=== PATIENT | female | born 1970 | race African-American/Black ===

== ENCOUNTER 2017-05-22 19:17 | Emergency (ER) | payer SELFPAY ==
[~2017-05-22] VITALS: Ht 175.3 cm; Wt 150.0 kg
[~2017-05-22 19:17] MED LIST: Z.0.NO CURRENT MEDS
[2017-05-22 19:19] VITALS: BP 135/82; PULSE 88; RESP 16; TEMP 98.5; O2SAT 96
[2017-05-22] MEDS ORDERED: SODIUM CHLORIDE 0.9% FLUSH 10 ML FLUSH IVF PRN (21:15)
[2017-05-22] MEDS ORDERED: diphenhydrAMINE HCL 50 MG/ML VIAL IVP ONE (21:15)
[2017-05-22] MEDS ORDERED: PROCHLORPERAZINE INJ 10 MG/2 ML VIAL IVP ONE (21:15)
--- NOTE | 2017-05-22 22:33 | PD ---
HPI . Headache Chief Complaint: Headache Time Seen by Provider: 21:14 Travel History International Travel<30 days: No Contact w/Intl Traveler<30days: No Traveled to known affect area: No History of Present Illness HPI This patient presents with chief complaint of headache. Onset was yesterday. She describes a pressure-like sensation in both the front and back of her head. Her headache was relieved by Advil yesterday but recurred today. She did not take any further Advil today. She rates the pain 8/10. PFSH Past Medical History Medical History: Denies Significant Hx Cardiovascular Problems: Yes (HTN, NOT MEDICATED) Medical other: Yes (PERINTONITIS) Tetanus Vaccination: Unknown Influenza Vaccination: No ?: Not LMP: 1 WEEK AGO Past Surgical History Abdominal Surgery: Yes Section: Yes Other Surgery: Yes (EVACUATION OF HEMATOMA LEFT CALF) Social History Alcohol Use: No Tobacco Use: Yes Substance Use: No Allergies-Medications (Allergen,Severity, Reaction): Coded Allergies: No Known Allergies (Verified , 12/26/16) Reported Meds & Prescriptions Reported Meds & Active Scripts Active No Active Prescriptions or Reported Medications Review of Systems Except as stated in HPI: all other systems reviewed are Neg General / Constitutional: No: Fever, Chills Eyes: No: Blurred Vision HENT: Positive: Headaches Gastrointestinal: No: Nausea, Vomiting Physical Exam Narrative GENERAL: Awake and alert and in no acute distress. SKIN: Warm and dry with no rash or lesions. HEAD: Normocephalic/atraumatic. EYES: Pupils are equal. Extraocular movements are intact. ENT: Mucous membranes are pink and moist. NECK: Neck is supple. RESPIRATORY: Nonlabored respirations. MUSCULOSKELETAL: Atraumatic. NEUROLOGICAL: A and O times 3. Cranial nerves are intact. Transfer Car Operator Drier strengths are full and equal. Afrjpw-oelf-nhzezw exam is intact. PSYCHIATRIC: Appropriate mood and affect. Data Data Last Documented VS Vital Signs Date Time Temp Pulse Resp B/P (MAP) Pulse Ox O2 Delivery O2 Flow Rate FiO2 05/22/17 19:19 98.5 88 16 135/82 (99) 96 Room Air Orders Orders Iv Access Insert/Monitor (05/22/17 21:14) Sodium Chloride 0.9% Flush (Ns Flush) (05/22/17 21:15) Prochlorperazine Inj (Compazine Inj) (05/22/17 21:15) Diphenhydramine Inj (Benadryl Inj) (05/22/17 21:15) MDM Medical Decision Making Medical Screen Exam Complete: Yes Emergency Medical Condition: Yes Differential Diagnosis Differential diagnosis of headache includes but is not limited to migraine, muscle contraction headache, brain tumor, brain bleed Narrative Course Patient presents complaining with a global headache. Her headache was treated with Compazine and Benadryl. Her headache has now completely resolved. Diagnosis Primary Impression: Headache Qualified Codes: G44.209 - Tension-type headache, unspecified, not intractable Patient Instructions: Acute Headache (DC), General Instructions Scripts No Active Prescriptions or Reported Meds Disposition: 01 DISCHARGE HOME Condition: Stable Kirstie Hagen MD May 22, 2017 22:33
== END 2017-05-22 22:46 | disposition home or self-care (01) ==
LOC: NEPD 19:17
DX: G44.209 Tension-type headache, unspecified, not intractable (principal); Z72.0 Tobacco use
CPT/HCPCS: 96374; 96375; 99284; J0780; J1200

== ENCOUNTER 2017-11-23 15:02 | Observation (INO) | payer SELFPAY ==
[~2017-11-23] VITALS: Ht 175.3 cm; Wt 141.0 kg
[2017-11-23 15:05] VITALS: BP 138/70; PULSE 99; RESP 16; TEMP 98; O2SAT 96
--- NOTE | 2017-11-23 16:42 | PD ---
HPI Chief Complaint: Diabetic Time Seen by Provider: 16:05 Travel History International Travel<30 days: No Contact w/Intl Traveler<30days: No Traveled to known affect area: No History of Present Illness HPI 47yo F presents to the ED c/o weakness and fatigue for several weeks. Pt states it was at its worse this morning while at work and asked to go home due to her unable to do her usual duties. When she got home, her roommate took her BS and it was 435. Upon arrival to the ED, her BS was measured at 445. She also states that she has been getting "cotton mouth" and leg cramps at night that are alleviated with movement. She was diagnosed with diabetes mellitus one week by Dr. Rice, after being borderline for sometime. She has since been started on Metformin 500mg twice daily, but is unable to monitor her BS because she does not have a BS monitor. She currently denies any chest pain, SOB, numbness, tingling, changes in urination or bowel movements. 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 Alert and oriented x3. SKIN: Warm and dry. HEAD: Atraumatic. Normocephalic. EYES: Pupils equal and round. No scleral icterus. No injection or drainage. No conjunctival pallor. ENT: No nasal bleeding or discharge. Mucous membranes pink and moist. NECK: Trachea midline. No JVD. CARDIOVASCULAR: Regular rate and rhythm. RESPIRATORY: No accessory muscle use. Clear to auscultation. Breath sounds equal bilaterally. GASTROINTESTINAL: Abdomen soft, non-tender, nondistended. Hepatic and splenic margins not palpable. Midline incisional scar from previous surgery. MUSCULOSKELETAL: Extremities without clubbing, cyanosis, or edema. No obvious deformities. NEUROLOGICAL: Awake and alert. No obvious cranial nerve deficits. Motor grossly within normal limits. Five out of 5 muscle strength in the arms and legs. Normal speech. PSYCHIATRIC: Appropriate mood and affect; insight and judgment normal. Data Data Last Documented VS Vital Signs Date Time Temp Pulse Resp B/P (MAP) Pulse Ox O2 Delivery O2 Flow Rate FiO2 11/23/17 17:46 82 16 119/71 (87) 100 11/23/17 15:05 98.0 Orders Orders Basic Metabolic Panel (Bmp) (11/23/17 15:08) Complete Blood Count With Diff (11/23/17 15:08) Urinalysis - C+S If Indicated (11/23/17 15:08) Sodium Chlor 0.9% 1000 Ml Inj (Ns 1000 M (11/23/17 16:45) Sodium Chlor 0.9% 1000 Ml Inj (Ns 1000 M (11/23/17 16:45) Insulin Human Regular Inj (Novolin R Inj (11/23/17 17:30) Sodium Chlorid 0.9% 500 Ml Inj (Ns 500 M (11/23/17 18:00) Diet 1999 Ada Cons Carb (11/23/17 Dinner) Labs Laboratory Tests Test 11/23/17 15:50 11/23/17 17:45 Urine Color LIGHT-YELLOW Urine Turbidity CLEAR Urine pH 5.0 Urine Specific [place] 1.038 Urine Protein NEG mg/dL Urine Glucose (UA) 1000 mg/dL Urine Ketones 40 mg/dL Urine Occult Blood NEG Urine Nitrite NEG Urine Bilirubin NEG Urine Urobilinogen LESS THAN 2.0 MG/DL Urine Leukocyte Esterase NEG Urine RBC 1 /hpf Urine WBC 1 /hpf Urine Squamous Epithelial Cells 1 /hpf Microscopic Urinalysis Comment CULT NOT INDICATED Blood Urea Nitrogen 14 MG/DL Creatinine 1.01 MG/DL Random Glucose 499 MG/DL Calcium Level 9.9 MG/DL Sodium Level 134 MEQ/L Potassium Level 4.5 MEQ/L Chloride Level 97 MEQ/L Carbon Dioxide Level 26.3 MEQ/L Anion Gap 11 MEQ/L Estimat Glomerular Filtration Rate 70 ML/MIN White Blood Count 6.8 TH/MM3 Red Blood Count 4.61 MIL/MM3 Hemoglobin 13.2 GM/DL Hematocrit 40.0 % Mean Corpuscular Volume 86.8 FL Mean Corpuscular Hemoglobin 28.6 PG Mean Corpuscular Hemoglobin Concent 33.0 % Red Cell Distribution Width 13.1 % Platelet Count 357 TH/MM3 Mean Platelet Volume 9.5 FL Neutrophils (%) (Auto) 63.0 % Lymphocytes (%) (Auto) 29.1 % Monocytes (%) (Auto) 5.5 % Eosinophils (%) (Auto) 1.1 % Basophils (%) (Auto) 1.3 % Neutrophils # (Auto) 4.3 TH/MM3 Lymphocytes # (Auto) 2.0 TH/MM3 Monocytes # (Auto) 0.4 TH/MM3 Eosinophils # (Auto) 0.1 TH/MM3 Basophils # (Auto) 0.1 TH/MM3 CBC Comment DIFF FINAL Differential Comment MDM Medical Decision Making Medical Screen Exam Complete: Yes Emergency Medical Condition: Yes Differential Diagnosis Control hyperglycemia versus DKA versus HONK Narrative Course 37-year-old female with a recent diagnosis of "borderline diabetes", presents today with complaints of weakness, dizziness, increased thirst, increased urination. Patient states that she does not have a glucometer and checked her blood sugar from her roommates blood glucose machine. She reports taking her metformin 500 mg twice daily as prescribed. The patient has been given 8 units of regular insulin, 2 L of IV fluid. Patient's blood glucose is still in the 200s. Given the fact that she has no formal physician and is seen at the free clinic, we will bring the patient in under observation for glucose control. Call out to the [facility] hospitalist team is pending. Diagnosis Primary Impression: Uncontrolled diabetes mellitus with hyperglycemia Admitting Information Admitting Physician Requests: Observation Emanuel Villarreal MD November 23, 2017 16:42
[2017-11-23 16:43] LABS: BILIRUBIN, URINE NEG (NEG); BLOOD, URINE NEG (NEG); GLUCOSE,URINE 1000 mg/dL (NEG); KETONE, URINE 40 mg/dL (NEG); NITRITE,URINE NEG (NEG); SQUAMOUS EPITHELIAL CELL URINE 1 /hpf (0-5); URINE COLOR LIGHT-YELLOW (YELLW/STRAW); URINE LEUKOCYTE ESTERASE NEG (NEG)
[2017-11-23] MEDS ORDERED: SODIUM CHLOR 0.9% 1000 ML INJ 1,000 ML IV SCH (16:45)
[2017-11-23] MEDS ORDERED: SODIUM CHLOR 0.9% 1000 ML INJ 1,000 ML IV ONE (16:45)
[2017-11-23] MEDS ORDERED: GABA300C5 PO (16:50)
[2017-11-23] MEDS ORDERED: DICL1CAP4 PO (16:50)
[2017-11-23] MEDS ORDERED: METF500T PO (16:50)
[2017-11-23 17:26] LABS: BICARBONATE 26.3 MEQ/L (21.0-32.0); CALCIUM 9.9 MG/DL (8.5-10.1); CREATININE 1.01 MG/DL (0.50-1.00)
[2017-11-23] MEDS ORDERED: INSULIN HUMAN REGULAR 1,000 UNITS/10 ML VIAL IV PUSH ONE (17:30)
[2017-11-23 17:46] VITALS: BP 119/71; PULSE 82; RESP 16; O2SAT 100
[2017-11-23] MEDS ORDERED: SODIUM CHLORID 0.9% 500 ML INJ 500 ML IV ONE (18:00)
[2017-11-23 18:07] LABS: AUTOMATED NEUTROPHIL # 4.3 TH/MM3 (1.8-7.7); BASOPHIL # 0.1 TH/MM3 (0-0.2); BASOPHIL % 1.3 % (0.0-2.0); EOSINOPHIL # 0.1 TH/MM3 (0-0.4); EOSINOPHIL % 1.1 % (0.0-4.0); HEMOGLOBIN 13.2 GM/DL (11.6-15.3); LYMPH % 29.1 % (9.0-44.0); MEAN CELL VOLUME 86.8 FL (80.0-100.0); MEAN CORPUSCULAR HEMOGLOBIN 28.6 PG (27.0-34.0); MEAN PLATELET VOLUME 9.5 FL (7.0-11.0); MONO % 5.5 % (0.0-8.0); MONOCYTE # 0.4 TH/MM3 (0-0.9); PLATELET COUNT 357 TH/MM3 (150-450); RED BLOOD COUNT 4.61 MIL/MM3 (4.00-5.30); RED CELL DISTRIBUTION WIDTH 13.1 % (11.6-17.2); WHITE BLOOD COUNT 6.8 TH/MM3 (4.0-11.0)
[2017-11-23 20:14] VITALS: BP 137/87; PULSE 98; RESP 16; O2SAT 98
[2017-11-23] MEDS ORDERED: ONDANSETRON HCL 4 MG/2 ML VIAL IVP PRN (20:30)
[2017-11-23] MEDS ORDERED: SODIUM CHLORIDE 0.9% FLUSH 10 ML FLUSH IV FLUSH PRN (20:30)
[2017-11-23] MEDS ORDERED: GLUCAGON 1 MG/ML VIAL OTHER PRN (20:30)
[2017-11-23] MEDS ORDERED: NALOXONE HCL 0.4 MG/ML AMP IV PUSH PRN (20:30)
[2017-11-23] MEDS ORDERED: DEXTROSE 50% IN WATER 50 ML VIAL(D50) IV PUSH PRN (20:30)
[2017-11-23] MEDS ORDERED: ACETAMINOPHEN 325 MG TAB PO PRN (20:30)
--- NOTE | 2017-11-23 20:52 | HHI.HP ---
[facility]PI [facility] Primary [facility]ician No Primary Care Physician Admission Diagnosis uncontrolled diabetes mellitus, Diagnoses: Travel History International Travel<30 Days: No Contact w/Intl Traveler <30 Da: No Traveled to Known Affected Are: No History of Present Illness 47-year-old female with a past medical history significant for newly diagnosed diabetes mellitus recently started on metformin 2 weeks ago and osteoarthritis presents to the ED for the evaluation of worsening fatigue x 2 weeks. The patient reports that she feels sluggish and lightheaded and reports polyuria and polydipsia. She states she has been having lower extremity cramping. She denies any chest pain or shortness of breath. No abdominal pain. No nausea/ vomiting/diarrhea. No lateralizing signs/symptoms. On arrival to the emergency department her blood sugar was found to be 499. Review of Systems Except as stated in HPI: all other systems reviewed are Neg Past Family Social History Past Medical History Newly diagnosed diabetes mellitus Osteoarthritis Past Surgical History Laparotomy for suspected peritonitis Reported Medications Reported Meds & Active Scripts Active Reported Zorvolex (Diclofenac) 35 Mg Cap 35 Mg PO BID Gabapentin 300 Mg Cap 300 Mg PO BID Metformin (Metformin HCl) 500 Mg Tab 500 Mg PO BIDPC Allergies: Coded Allergies: No Known Allergies (Verified Allergy, Unknown, 11/23/17) Family History Patient was adopted Social History Smokes approximately 3 cigarettes per day. Negative for alcohol and illicit drugs. Remote history of crack cocaine use. Physical Exam Vital Signs Vital Signs Date Time Temp Pulse Resp B/P (MAP) Pulse Ox O2 Delivery O2 Flow Rate FiO2 11/23/17 20:40 11/23/17 20:14 98 16 137/87 (104) 98 Room Air 11/23/17 17:46 82 16 119/71 (87) 100 11/23/17 15:05 98.0 99 16 138/70 (92) 96 Physical Exam GENERAL: Obese, -[place] female sitting up in bed SKIN: No rashes, ecchymoses or lesions. Cool and dry. HEAD: Atraumatic. Normocephalic. No temporal or scalp tenderness. EYES: Pupils equal round and reactive. Extraocular motions intact. No scleral icterus. No injection or drainage. ENT: Nose without bleeding, purulent drainage or septal hematoma. Throat without erythema, tonsillar hypertrophy or exudate. Uvula midline. Airway patent. NECK: Trachea midline. No JVD or lymphadenopathy. Supple, nontender, no meningeal signs. CARDIOVASCULAR: Regular rate and rhythm without murmurs, gallops, or rubs. RESPIRATORY: Clear to auscultation. Breath sounds equal bilaterally. No wheezes , rales, or rhonchi. GASTROINTESTINAL: Abdomen soft, non-tender, nondistended. No hepato-splenomegaly , or palpable masses. No guarding. MUSCULOSKELETAL: Extremities without clubbing, cyanosis, or edema. No joint tenderness, effusion, or edema noted. No calf tenderness. NEUROLOGICAL: Awake and alert. Cranial nerves II through XII intact. Motor and sensory grossly within normal limits. Normal speech. Laboratory Laboratory Tests Test 11/23/17 15:50 11/23/17 17:45 Urine Color LIGHT-YELLOW Urine Turbidity CLEAR Urine pH 5.0 Urine Specific [place] 1.038 Urine Protein NEG Urine Glucose (UA) 1000 Urine Ketones 40 Urine Occult Blood NEG Urine Nitrite NEG Urine Bilirubin NEG Urine Urobilinogen LESS THAN 2.0 Urine Leukocyte Esterase NEG Urine RBC 1 Urine WBC 1 Urine Squamous Epithelial Cells 1 Microscopic Urinalysis Comment CULT NOT INDICATED Blood Urea Nitrogen 14 Creatinine 1.01 Random Glucose 499 Calcium Level 9.9 Sodium Level 134 Potassium Level 4.5 Chloride Level 97 Carbon Dioxide Level 26.3 Anion Gap 11 Estimat Glomerular Filtration Rate 70 White Blood Count 6.8 Red Blood Count 4.61 Hemoglobin 13.2 Hematocrit 40.0 Mean Corpuscular Volume 86.8 Mean Corpuscular Hemoglobin 28.6 Mean Corpuscular Hemoglobin Concent 33.0 Red Cell Distribution Width 13.1 Platelet Count 357 Mean Platelet Volume 9.5 Neutrophils (%) (Auto) 63.0 Lymphocytes (%) (Auto) 29.1 Monocytes (%) (Auto) 5.5 Eosinophils (%) (Auto) 1.1 Basophils (%) (Auto) 1.3 Neutrophils # (Auto) 4.3 Lymphocytes # (Auto) 2.0 Monocytes # (Auto) 0.4 Eosinophils # (Auto) 0.1 Basophils # (Auto) 0.1 CBC Comment DIFF FINAL Differential Comment Result Diagram: 11/23/17 1745 11/23/17 1550 Caprini VTE Risk Assessment Caprini VTE Risk Assessment: No/Low Risk (score <= 1) Caprini Risk Assessment Model Point Value = 1 Point Value = 2 Point Value = 3 Point Value = 5 Age 41-60 Minor surgery BMI > 25 kg/m2 Swollen legs Varicose veins or History of unexplained or recurrent spontaneous Oral contraceptives or hormone replacement Sepsis (< 1 month) Serious lung disease, including pneumonia (< 1 month) Abnormal pulmonary function Acute myocardial infarction Congestive heart failure (< 1 month) History of inflammatory bowel disease Medical patient at bed rest Age 61-74 Arthroscopic surgery Major open surgery (> 45 min) Laparoscopic surgery (> 45 min) Malignancy Confined to bed (> 72 hours) Immobilizing plaster cast Central venous access Age >= 75 History of VTE Family history of VTE Factor V Leiden Prothrombin [id number] Lupus anticoagulant Anticardiolipin antibodies Elevated serum homocysteine Heparin-induced thrombocytopenia Other congenital or acquired thrombophilia Stroke (< 1 month) Elective arthroplasty Hip, pelvis, or leg fracture Acute spinal cord injury (< 1 month) Prophylaxis Regimen Total Risk Factor Score Risk Level Prophylaxis Regimen 0-1 Low Early ambulation 2 Moderate Order ONE of the following: *Sequential Compression Device (SCD) *Heparin 5000 units SQ BID 3-4 Higher Order ONE of the following medications: *Heparin 5000 units SQ TID *Enoxaparin/Lovenox 40 mg SQ daily (WT < 150 kg, CrCl > 30 mL/min) *Enoxaparin/Lovenox 30 mg SQ daily (WT < 150 kg, CrCl > 10-29 mL/min) *Enoxaparin/Lovenox 30 mg SQ BID (WT < 150 kg, CrCl > 30 mL/min) AND/OR *Sequential Compression Device (SCD) 5 or more Highest Order ONE of the following medications: *Heparin 5000 units SQ TID (Preferred with Epidurals) *Enoxaparin/Lovenox 40 mg SQ daily (WT < 150 kg, CrCl > 30 mL/min) *Enoxaparin/Lovenox 30 mg SQ daily (WT < 150 kg, CrCl > 10-29 mL/min) *Enoxaparin/Lovenox 30 mg SQ BID (WT < 150 kg, CrCl > 30 mL/min) AND *Sequential Compression Device (SCD) Assessment and Plan Assessment and Plan Assessment/plan: 1. Hyperglycemia/diabetes mellitus Patient with newly diagnosed diabetes mellitus, compliant with metformin A1c pending Sliding-scale insulin Monitor blood glucose Patient may need insulin upon discharge carroter consulted Case management consulted to assist with glucometer and diabetic supplies 2. Bilateral lower extremity pain/osteoarthritis/? neuropathy Continue gabapentin FEN Diabetic diet Electrolytes: Monitor and replete as needed NS at 125 cc/hr Keila Florian MD November 23, 2017 20:52
[2017-11-23 21:23] VITALS: BP 126/72; PULSE 95; RESP 17; TEMP 98.4; O2SAT 97
[2017-11-23] MEDS: SODIUM CHLORIDE 0.9% FLUSH 10 ML FLUSH IV FLUSH SCH (21:29)
[2017-11-23] MEDS: GABAPENTIN 300 MG CAP PO SCH (21:29)
[2017-11-23] MEDS: INSULIN ASPART SUPPLEMENTAL SCALE SQ SCH (21:30)
[2017-11-23] MEDS: SODIUM CHLOR 0.9% 1000 ML INJ 1,000 ML IV SCH (21:47)
[2017-11-23 23:18] VITALS: BP 131/73; PULSE 83; RESP 16; TEMP 98.6; O2SAT 97
[2017-11-24 03:10] VITALS: BP 128/83; PULSE 88; RESP 17; TEMP 98.4; O2SAT 95
[2017-11-24] MEDS: SODIUM CHLOR 0.9% 1000 ML INJ 1,000 ML IV SCH ×3 (05:30→21:58)
[2017-11-24 05:48] LABS: AUTOMATED NEUTROPHIL # 2.7 TH/MM3 (1.8-7.7); BASOPHIL % 0.9 % (0.0-2.0); EOSINOPHIL # 0.1 TH/MM3 (0-0.4); EOSINOPHIL % 2.5 % (0.0-4.0); HEMATOCRIT 34.2 % (35.0-46.0); HEMOGLOBIN 11.6 GM/DL (11.6-15.3); LYMPH % 35.2 % (9.0-44.0); LYMPHOCYTE # 1.7 TH/MM3 (1.0-4.8); MEAN CELL VOLUME 85.5 FL (80.0-100.0); MEAN CORPUSCULAR HEMOGLOBIN 29.1 PG (27.0-34.0); MEAN PLATELET VOLUME 9.2 FL (7.0-11.0); MONOCYTE # 0.3 TH/MM3 (0-0.9); NEUT % 54.4 % (16.0-70.0); PLATELET COUNT 280 TH/MM3 (150-450); RED CELL DISTRIBUTION WIDTH 13.2 % (11.6-17.2)
[2017-11-24 06:08] LABS: BICARBONATE 23.6 MEQ/L (21.0-32.0); CALCIUM 8.6 MG/DL (8.5-10.1); CREATININE 0.63 MG/DL (0.50-1.00)
[2017-11-24 08:19] VITALS: BP 137/91; PULSE 84; RESP 18; TEMP 98.7; O2SAT 98
[2017-11-24] MEDS: INSULIN ASPART SUPPLEMENTAL SCALE SQ SCH ×4 (09:46→21:58)
[2017-11-24] MEDS: SODIUM CHLORIDE 0.9% FLUSH 10 ML FLUSH IV FLUSH SCH ×2 (09:47→21:57)
[2017-11-24] MEDS: GABAPENTIN 300 MG CAP PO SCH ×2 (09:47→21:57)
[2017-11-24] MEDS: HEPARIN SODIUM - SQ 10,000 UNITS/ML VIAL SQ SCH ×2 (09:48→21:57)
[2017-11-24] MEDS ORDERED: INSULIN HUMAN NPH 1,000 UNITS/10 ML VIAL SQ ONE (10:00)
[2017-11-24 13:29] LABS: HEMOGLOBIN A1C 12.9 % (4.3-6.0)
[2017-11-24 14:50] VITALS: BP 115/72; PULSE 85; RESP 18; TEMP 98.6; O2SAT 95
--- NOTE | 2017-11-24 15:10 | HHI.PR ---
Subjective Remarks Blood sugars are over 500 at time of admit. She has been treated with insulin sliding scale this does not appear to be enough to control her blood sugars. She does have improvement and is down into the 300s this morning. Long-acting NPH started as a baseline treatment, further monitoring adjustments needed prior to stability for discharge. Patient is not stable enough to discharge today. Objective Vital Signs Date Time Temp Pulse Resp B/P (MAP) Pulse Ox O2 Delivery O2 Flow Rate FiO2 11/24/17 14:50 98.6 85 18 115/72 (86) 95 11/24/17 08:19 98.7 84 18 137/91 (106) 98 11/24/17 03:10 98.4 88 17 128/83 (98) 95 11/23/17 23:18 98.6 83 16 131/73 (92) 97 11/23/17 21:23 98.4 95 17 126/72 (90) 97 11/23/17 20:40 11/23/17 20:14 98 16 137/87 (104) 98 Room Air 11/23/17 17:46 82 16 119/71 (87) 100 I/O 11/23/17 11/23/17 11/23/17 11/24/17 11/24/17 11/24/17 07:00 15:00 23:00 07:00 15:00 23:00 Intake Total 1500 ml Balance 1500 ml Intake IV Total 1500 ml # Voids 1 Result Diagram: 11/24/17 0454 11/24/17 0454 Objective Remarks GENERAL: NAD, A&Ox3 HEAD: Normocephalic. NECK: Supple, trachea midline. No lymphadenopathy. EYES: No scleral icterus. No injection or drainage. CARDIOVASCULAR: Regular rate and rhythm without murmurs, gallops, or rubs. RESPIRATORY: Breath sounds equal bilaterally. No accessory muscle use. GASTROINTESTINAL: Abdomen soft, non-tender, nondistended. MUSCULOSKELETAL: No cyanosis, or edema. SKIN: Warm and dry. NEURO: No focal neurological deficitis. A/P Problem List: (1) Uncontrolled diabetes mellitus with hyperglycemia ICD Code: E11.65 - Type 2 diabetes mellitus with hyperglycemia Status: Acute Assessment and Plan 47-year-old female admitted secondary to uncontrolled diabetes mellitus type 2 with dehydration Hyperglycemia/diabetes mellitus New diagnosis diabetes mellitus type 2 Uncontrolled diabetes mellitus type 2 Dehydration Outpatient treatment failure with metformin Follow blood sugars Insulin sliding scale Diabetic diet NPH insulin 10 units nightly and 20 units every morning Follow for improvement in blood sugars Bilateral lower extremity pain History of osteoarthritis Likely acute neuropathy This should improve with control blood sugars Continue gabapentin Zaheer Esquivel MD November 24, 2017 15:10
[2017-11-24] MEDS ORDERED: INSULIN HUMAN NPH 1,000 UNITS/10 ML VIAL SQ SCH ×2 (17:00)
[2017-11-24 20:10] VITALS: BP 122/77; PULSE 85; RESP 18; TEMP 98.3; O2SAT 98
[2017-11-24 23:44] VITALS: BP 117/83; PULSE 84; RESP 16; TEMP 98.4; O2SAT 98
[2017-11-25 03:32] VITALS: BP 114/71; PULSE 67; RESP 17; TEMP 98.1; O2SAT 96
[2017-11-25] MEDS: SODIUM CHLOR 0.9% 1000 ML INJ 1,000 ML IV SCH ×2 (05:40→10:25)
[2017-11-25] MEDS ORDERED: INSULIN HUMAN NPH 1,000 UNITS/10 ML VIAL SQ SCH ×2 (08:00→17:00)
[2017-11-25 08:02] LABS: BICARBONATE 26.1 MEQ/L (21.0-32.0); CALCIUM 8.4 MG/DL (8.5-10.1); CREATININE 0.59 MG/DL (0.50-1.00)
[2017-11-25 08:58] VITALS: BP 127/84; PULSE 85; RESP 20; TEMP 97.9; O2SAT 96
[2017-11-25] MEDS: GABAPENTIN 300 MG CAP PO SCH (10:26)
[2017-11-25] MEDS: SODIUM CHLORIDE 0.9% FLUSH 10 ML FLUSH IV FLUSH SCH (10:27)
[2017-11-25] MEDS: INSULIN ASPART SUPPLEMENTAL SCALE SQ SCH ×2 (10:27→13:21)
[2017-11-25] MEDS: HEPARIN SODIUM - SQ 10,000 UNITS/ML VIAL SQ SCH (10:32)
[2017-11-25] MEDS ORDERED: INSULIN HUMAN NPH 1,000 UNITS/10 ML VIAL SQ ONE (10:45)
[2017-11-25 11:30] VITALS: BP 142/85; PULSE 95; RESP 16; TEMP 98; O2SAT 98
[2017-11-25] MEDS ORDERED: LANCETS1 MI1 (15:18)
[2017-11-25] MEDS ORDERED: PEN29MIS (15:18)
[2017-11-25] MEDS ORDERED: [UNRECOGNIZED DRUG - OTHER] TP (15:18)
[2017-11-25] MEDS ORDERED: BLOOD GLUCOSE T1 TES (15:18)
[2017-11-25] MEDS ORDERED: NOVONP2 SQ (15:18)
[2017-11-25] MEDS ORDERED: ALCO1PAD (15:18)
[2017-11-25 15:44] VITALS: BP 125/64; PULSE 77; RESP 16; TEMP 98.2; O2SAT 96
--- NOTE | 2017-11-25 16:25 | HHI.DS ---
Discharge Summary Admission Date November 23, 2017 at 19:43 Discharge Date: November 25, 2017 Admitting Diagnosis uncontrolled diabetes mellitus, (1) Uncontrolled diabetes mellitus with hyperglycemia ICD Code: E11.65 - Type 2 diabetes mellitus with hyperglycemia Diagnosis: Principal Status: Acute Procedures None Brief History - From Admission 47-year-old female with a past medical history significant for newly diagnosed diabetes mellitus recently started on metformin 2 weeks ago and osteoarthritis presents to the ED for the evaluation of worsening fatigue x 2 weeks. The patient reports that she feels sluggish and lightheaded and reports polyuria and polydipsia. She states she has been having lower extremity cramping. She denies any chest pain or shortness of breath. No abdominal pain. No nausea/ vomiting/diarrhea. No lateralizing signs/symptoms. On arrival to the emergency department her blood sugar was found to be 499. CBC/BMP: 11/24/17 0454 11/25/17 0653 Significant Findings Laboratory Tests Test 11/23/17 15:50 11/23/17 17:45 11/24/17 04:54 11/25/17 06:53 Urine Specific [place] 1.038 (1.002-1.035) Urine Glucose (UA) 1000 mg/dL (NEG) Urine Ketones 40 mg/dL (NEG) Creatinine 1.01 MG/DL (0.50-1.00) Random Glucose 499 MG/DL (74-106) 310 MG/DL (74-106) 250 MG/DL (74-106) Sodium Level 134 MEQ/L (136-145) Chloride Level 97 MEQ/L (98-107) Estimat Glomerular Filtration Rate 70 ML/MIN (>89) Hemoglobin A1c 12.9 % (4.3-6.0) Hematocrit 34.2 % (35.0-46.0) Calcium Level 8.4 MG/DL (8.5-10.1) Hospital Course Mrs. Lynn is a 47-year-old female. She was admitted secondary to uncontrolled diabetes with symptoms of fatigue, dehydration, and cramping. Blood sugars were over 500. As an outpatient she had recently been diagnosed with borderline diabetes and treated with metformin, but this appears to have progressed. Hemoglobin A1c is 12.9. In the hospital she is started on NPH insulin as an affordable treatment for her. This was started at 10 twice a day and has been adjusted with improved control at 24 units every morning and 12 units every afternoon. She may need further adjustment as an outpatient, but at this point she is medically clear and stable for discharge to home. She has been educated and taught how to use subcutaneous insulin. Pt Condition on Discharge: Stable Discharge Disposition: Discharge Home Discharge Time: <= 30 minutes Discharge Instructions DIET: Follow Instructions for: Diabetic Diet Activities you can perform: Regular-No Restrictions Follow up Referrals: PCP Follow-up - 2 Weeks New Medications: Alcohol Swabs (Alcohol Prep Pads) 70 % Pad PAD .XX DIRECTED for Aseptic process, #1 0 Refills Blood Glucose Test Strips (Blood Glucose Test Strips) Strips Strip EA .XX DIRECTED for Blood Sugar Management, #1 0 Refills Blood-Glucose Meter (Blood-Glucose Meter) 1 Each Kit UNIT TP TID for Blood Sugar Management, #1 Insulin Human NPH Inj (Novolin N Inj) 100 Unit/Ml Inj 12 UNIT SQ DIRECTED for Blood Sugar Management, #1 VIAL 3 Refills 24 units each morning 12 units each evening Insulin Pen Needle (Pen [place] 29GX1/2" 29G X 12Mm) 29 Gauge X 1/2" Mis EA .XX DIRECTED for Blood Sugar Management, #100 0 Refills Standard Insulin Needle Pack Lancets (Lancets) 1 Mis Mis EA .XX DIRECTED for Blood Sugar Management, #1 0 Refills Continued Medications: Diclofenac (Zorvolex) 35 Mg Cap 35 MG PO BID for Pain Management, CAP 0 Refills Gabapentin (Gabapentin) 300 Mg Cap 300 MG PO BID, #60 CAP 0 Refills Discontinued Medications: Metformin (Metformin) 500 Mg Tab 500 MG PO BIDPC for Blood Sugar Management, #60 TAB 0 Refills Zaheer Esquivel MD November 25, 2017 16:25
[2017-11-26] MEDS ORDERED: INSULIN HUMAN NPH 1,000 UNITS/10 ML VIAL SQ SCH (08:00)
== END 2017-11-25 17:34 | disposition home or self-care (01) ==
LOC: NEPE 15:02 → NEDA 19:43 → NEPFCDU 20:52
PROVIDERS: ADMIT Hospitalist; ATTEND Hospitalist
DX: E11.65 Type 2 diabetes mellitus with hyperglycemia (principal); E86.0 Dehydration; M79.604 Pain in right leg; M79.605 Pain in left leg; M19.90 Unspecified osteoarthritis, unspecified site; F17.210 Nicotine dependence, cigarettes, uncomplicated; Z79.84 Long term (current) use of oral hypoglycemic drugs; Z79.899 Other long term (current) drug therapy
CPT/HCPCS: 80048; 81001; 82948; 83036; 85025; 96360; 96361; 96372; 99285; G0378; J1644; J1815; J7030; J7040